=== PATIENT | female | born 1955 | race Caucasian/White ===

== ENCOUNTER 2023-04-15 20:14 | Emergency (ER) | payer MEDICARE ==
[~2023-04-15] VITALS: Ht 172.7 cm; Wt 79.3 kg
[2023-04-15 20:28] VITALS: BP 156/89
[2023-04-15 21:22] LABS: BASOPHILS # (AUTO) 0.1 10^3/uL (0.0-0.1); BASOPHILS % (AUTO) 1 % (0-10); EOSINOPHILS # (AUTO) 0.2 10^3/uL (0.0-0.3); EOSINOPHILS % (AUTO) 2 % (0-10); HEMATOCRIT 38 % (35-52); HEMOGLOBIN 13.4 g/dL (11.5-16.0); LYMPHOCYTES # (AUTO) 3.3 10^3/uL (1.0-4.0); LYMPHOCYTES % (AUTO) 44 % (12-44); MEAN CORPUSCULAR HEMOGLOBIN 33 pg (25-34); MEAN CORPUSCULAR HGB CONC 35 g/dL (32-36); MEAN CORPUSCULAR VOLUME 96 fL (80-99); MONOCYTES # (AUTO) 0.5 10^3/uL (0.0-1.0); MONOCYTES % (AUTO) 7 % (0-12); NEUTROPHILS # (AUTO) 3.4 10^3/uL (1.8-7.8); NEUTROPHILS % (AUTO) 46 % (42-75); PLATELET COUNT 226 10^3/uL (130-400); WHITE BLOOD COUNT 7.4 10^3/uL (4.3-11.0)
--- NOTE | 2023-04-15 21:28 | ED Lower Extremity ---
General Chief Complaint: Lower Extremity Stated Complaint: SWOLLEN AND REDNESS LEFT LOWER LEG Nursing Triage Note: PATIENT UP AND DOWN LADDER, STATES TODAY NOTICED SWELLING LEFT LOWER LEG. Source: patient, family Exam Limitations: no limitations History of Present Illness Date Seen by Provider: Apr 15, 2023 Time Seen by Provider: 20:39 Initial Comments This 67-year-old woman presents to the emergency room with complaints of erythema, warmth, and swelling on the distal left lower leg that was just noticed this evening. She has been up and down on a ladder for several days doing painting. She does not recall any injury to this area but she has been leaning against the ladder. She denies any calf pain or tenderness. She denies any fever, chills, chest pain, or shortness of breath. There is no history of prior DVT. She denies any experience of sharp or sudden pain such as insect sting or bite. Allergies and Home Medications Allergies Coded Allergies: erythromycin base (Verified Adverse Reaction, Intermediate, Severe abdominal cramps, 04/15/23) Severe abdominal cramps hydromorphone (Verified Adverse Reaction, Intermediate, Vomiting, 04/15/23) Severe Nausea and Vomting Patient Home Medication List Home Medication List Reviewed: Yes Review of Systems Constitutional: no symptoms reported EENTM: no symptoms reported Respiratory: no symptoms reported Cardiovascular: no symptoms reported Gastrointestinal: no symptoms reported Genitourinary: no symptoms reported : No Musculoskeletal: no symptoms reported Skin: see HPI Psychiatric/Neurological: No Symptoms Reported Past [id number]-[id number] Hx Patient Social History Tobacco Use?: No Use of E-Cig and/or Vaping dev: No Substance use?: No Alcohol Use?: Yes Alcohol type: Wine Alcohol Frequency: Daily Seasonal Allergies Seasonal Allergies: No Past Medical History Surgeries: Yes Hysterectomy, Orthopedic (right ankle) Respiratory: No Cardiac: Yes Valvular Heart Disease (MVP) Neurological: No : No Genitourinary: No Gastrointestinal: Yes Gastroesophageal Reflux Musculoskeletal: No Endocrine: No HEENT: No Cancer: No Psychosocial: No Integumentary: No Physical Exam Vital Signs Vital Signs - First Documented 04/15/23 20:28 Temp 36.5 Pulse 67 Resp 20 B/P (MAP) 156/89 (111) Pulse Ox 98 O2 Delivery Room Air Capillary Refill : Less Than 3 Seconds Height, Weight, BMI Height: '" Weight: lbs. oz. kg; 26.00 BMI Method: General Appearance: WD/WN HEENT: normal ENT inspection Neck: normal inspection Cardiovascular: regular rate, rhythm, no edema, no murmur Respiratory: lungs clear, normal breath sounds, no respiratory distress Legs: left leg other (Mild edema to the anterior and medial left lower leg just above the ankle. No calf swelling, tenderness, heat. Negative Yasmany.) Knees: bilateral knee normal inspection Ankles: bilateral ankle normal inspection Neurologic/Tendon: normal sensation, normal motor functions, normal tendon functions Neurologic/Psychiatric: no motor/sensory deficits, alert, normal mood/affect, oriented x 3 Skin: warm/dry, other (see leg exam) Progress/Results/Core Measures Results/Orders Lab Results Laboratory Tests Test 04/15/23 21:10 Range/Units White Blood Count 7.4 4.3-11.0 10^3/uL Red Blood Count 4.01 3.80-5.11 10^6/uL Hemoglobin 13.4 11.5-16.0 g/dL Hematocrit 38 35-52 % Mean Corpuscular Volume 96 80-99 fL Mean Corpuscular Hemoglobin 33 25-34 pg Mean Corpuscular Hemoglobin Concent 35 32-36 g/dL Red Cell Distribution Width 12.4 10.0-14.5 % Platelet Count 226 130-400 10^3/uL Mean Platelet Volume 10.0 9.0-12.2 fL Immature Granulocyte % (Auto) 0 % Neutrophils (%) (Auto) 46 42-75 % Lymphocytes (%) (Auto) 44 12-44 % Monocytes (%) (Auto) 7 0-12 % Eosinophils (%) (Auto) 2 0-10 % Basophils (%) (Auto) 1 0-10 % Neutrophils # (Auto) 3.4 1.8-7.8 10^3/uL Lymphocytes # (Auto) 3.3 1.0-4.0 10^3/uL Monocytes # (Auto) 0.5 0.0-1.0 10^3/uL Eosinophils # (Auto) 0.2 0.0-0.3 10^3/uL Basophils # (Auto) 0.1 0.0-0.1 10^3/uL Immature Granulocyte # (Auto) 0.0 0.0-0.1 10^3/uL D-Dimer 0.29 0.00-0.49 UG/ML Sodium Level 136 135-145 MMOL/L Potassium Level 3.7 3.6-5.0 MMOL/L Chloride Level 104 98-107 MMOL/L Carbon Dioxide Level 22 21-32 MMOL/L Anion Gap 10 5-14 MMOL/L Blood Urea Nitrogen 10 7-18 MG/DL Creatinine 0.71 0.60-1.30 MG/DL Estimat Glomerular Filtration Rate 94 BUN/Creatinine Ratio 14 Glucose Level 93 70-105 MG/DL Calcium Level 8.7 8.5-10.1 MG/DL C-Reactive Protein High Sensitivity 0.18 0.00-0.50 MG/DL My Orders Orders - LINDA WINTERS MD Ed Iv/Invasive Line Start (04/15/23 20:50) Basic Metabolic Panel (04/15/23 20:50) Cbc With Automated Diff (04/15/23 20:50) Hs C Reactive Protein (04/15/23 20:50) Fibrin Degradation Products (04/15/23 20:50) Cephalexin Capsule (Keflex Capsule) (04/15/23 22:00) Vital Signs/I&O 04/15/23 20:28 Temp 36.5 Pulse 67 Resp 20 B/P (MAP) 156/89 (111) Pulse Ox 98 O2 Delivery Room Air Blood Pressure Mean: 111 Progress Progress Note #1: Time: 21:36 Progress Note In-house ultrasound is not available at this time. Patient is being evaluated with CBC, BMP, CRP, and D-dimer. CBC has been reviewed and was completely unremarkable. There is no leukocytosis to suggest infection. Other labs are pending at this time. Progress Note #2: Time: 22:02 Progress Note Labs including CBC, BMP, CRP, and D-dimer were all interpreted by me as being unremarkable and normal. This effectively rules out DVT. Early cellulitis was not completely ruled out by this work-up. Patient is being treated with Keflex as a precaution. Mechanical irritation and/or venous insufficiency could also be a contributing factor. See discharge instructions for further discussion. Departure Impression Primary Impression: Cellulitis of left leg Disposition: 01 HOME, SELF-CARE Condition: Stable Departure-Patient Inst. Decision time for Depature: 21:59 Referrals: NO,LOCAL PHYSICIAN (PCP/Family) Primary Care Physician Patient Instructions: Cellulitis (Skin Infection), Adult ED Add. Discharge Instructions: Your skin and mild irritation may be due to mechanical irritation and/or insufficient swallow. However, early cellulitis (skin infection) cannot be ruled out at this time. Therefore, you should treat with antibiotics as prescribed. Avoid direct pressure on this area while you are working as much as possible. Elevate your foot to the level of your heart as much as possible. Marked the edges of the red area with a permanent marker to monitor progress and take a photo daily Return to care if you have worsening symptoms including development of fever or chills. All discharge instructions reviewed with patient and/or family. Voiced understanding. Scripts Cephalexin (Cephalexin) 500 Mg Tablet 500 MG PO QID, #20 TAB Prov: LINDA WINTERS MD 04/15/23 LINDA WINTERS MD Apr 15, 2023 21:28
[2023-04-15 21:39] LABS: POTASSIUM 3.7 MMOL/L (3.6-5.0)
[2023-04-15 21:40] LABS: CALCIUM 8.7 MG/DL (8.5-10.1)
[2023-04-15 21:45] LABS: CREATININE SERUM 0.71 MG/DL (0.60-1.30)
[2023-04-15] MEDS ORDERED: CEPHALEXIN 250 MG (KEFLEX) CAP PO ONE (22:00)
[2023-04-15] MEDS ORDERED: CEPH500T PO (22:01)
== END 2023-04-15 22:24 | disposition home or self-care (01) ==
LOC: ER 20:18
DX: L03.116 Cellulitis of left lower limb (principal); Z88.1 Allergy status to other antibiotic agents
CPT/HCPCS: 36415; 80048; 85025; 85379; 86141; 99283